=== PATIENT | female | born 1970 | race Asian ===

== ENCOUNTER 2020-03-07 08:22 | Day surgery (SDC) | payer OTHER ==
[~2020-03-07] VITALS: Ht 30.5 cm; Wt 0.5 kg
== END 2020-03-07 10:17 | disposition home or self-care (01) ==
LOC: OR 08:22
PROC: 3E0T3BZ Introduction of Anesthetic Agent into Peripheral Nerves and Plexi, Percutaneous Approach (ICD-10-PCS; principal; 2020-03-07)
PROC: 3E0T33Z Introduction of Anti-inflammatory into Peripheral Nerves and Plexi, Percutaneous Approach (ICD-10-PCS; 2020-03-07)
DX: M47.816 Spondylosis without myelopathy or radiculopathy, lumbar region (principal)
CPT/HCPCS: J1100; J2001

== ENCOUNTER 2020-03-26 07:50 | Day surgery (SDC) | payer OTHER ==
[~2020-03-26] VITALS: Ht 30.5 cm; Wt 0.5 kg
== END 2020-03-26 10:14 | disposition home or self-care (01) ==
LOC: OR 07:50
PROC: 3E0T3BZ Introduction of Anesthetic Agent into Peripheral Nerves and Plexi, Percutaneous Approach (ICD-10-PCS; principal; 2020-03-26)
PROC: 3E0T33Z Introduction of Anti-inflammatory into Peripheral Nerves and Plexi, Percutaneous Approach (ICD-10-PCS; 2020-03-26)
DX: M47.816 Spondylosis without myelopathy or radiculopathy, lumbar region (principal)
CPT/HCPCS: J1100; J2001

== ENCOUNTER 2020-05-07 07:39 | Day surgery (SDC) | payer OTHER ==
[~2020-05-07] VITALS: Ht 30.5 cm; Wt 0.5 kg
== END 2020-05-07 09:26 | disposition home or self-care (01) ==
LOC: OR 07:39
PROC: 3E0T3TZ Introduction of Destructive Agent into Peripheral Nerves and Plexi, Percutaneous Approach (ICD-10-PCS; principal; 2020-05-07)
PROC: BR16YZZ Fluoroscopy of Lumbar Facet Joint(s) using Other Contrast (ICD-10-PCS; 2020-05-07)
DX: M47.816 Spondylosis without myelopathy or radiculopathy, lumbar region (principal)
CPT/HCPCS: J2001

== ENCOUNTER 2020-05-28 08:26 | Day surgery (SDC) | payer OTHER | END 2020-05-28 09:52 | disposition home or self-care (01) | LOC: OR 08:26 | PROC: 3E0T3TZ Introduction of Destructive Agent into Peripheral Nerves and Plexi, Percutaneous Approach (ICD-10-PCS; principal; 2020-05-28) | PROC: BR16YZZ Fluoroscopy of Lumbar Facet Joint(s) using Other Contrast (ICD-10-PCS; 2020-05-28) | DX: M47.816 Spondylosis without myelopathy or radiculopathy, lumbar region (principal) | CPT/HCPCS: J2001 ==